=== PATIENT | male | born 2000 | race Caucasian/White ===

== ENCOUNTER 2021-08-31 02:17 | Emergency (ER) | payer OTHER ==
[2021-08-31 02:51] VITALS: BP 114/66; TEMP 98.5; BMI 19.8
[2021-08-31 04:13] VITALS: PULSE 103
[2021-09-03 01:06] LABS: SARS-CoV-2 NAA Detected (Not Detected)
== END 2021-08-31 04:30 | disposition home or self-care (01) ==
LOC: JER 02:17
DX: B34.9 Viral infection, unspecified (principal); R09.81 Nasal congestion
CPT/HCPCS: 87804; 87807; 99283-25; C9803; U0003; U0005